=== PATIENT | male | born 1970 | race American Indian/Alaskan Native ===

== ENCOUNTER 2018-10-23 18:53 | Observation (INO) | payer OTHER ==
--- NOTE | 2018-10-23 19:49 | Emergency Department Report ---
Blank Doc - Documentation Documentation: 48 male presents cc of chest pain labs ordered ACC eval
[2018-10-23] MEDS ORDERED: NITROSTAT SL PRN (21:02)
[2018-10-23] MEDS ORDERED: CARAFATE PO ONE (21:02)
[2018-10-23] MEDS ORDERED: ALUM-MAG HYDROX-SIMETH 200-200-20MG/5ML PO ONE (21:02)
[2018-10-23] MEDS ORDERED: PEPCID PO ONE (21:02)
--- NOTE | 2018-10-23 21:02 | Emergency Department Report ---
ED Chest Pain HPI - General Chief Complaint: Chest Pain Stated Complaint: CHEST PAIN Time Seen by Provider: 10/23/18 19:48 Source: patient, RN notes reviewed Mode of arrival: Ambulatory Limitations: No Limitations - History of Present Illness Initial Comments: Primary care Dr.: Past medical history obesity, diabetes, hypertension, high cholesterol Family history: Valvular disease in mother, heart disease in father, and brother. Reports bother had cardiac bypass at the age of 44. Patient presents to the emergency room today with a complaint of chest pain. The chest pain is left-sided, central and right-sided. It is present interm ittently for the past 4-5 days. It occasionally radiates to the back. There is no vomiting or diaphoresis. There is positive recent aspirin use. No DVT or pulmonary embolus risk factors. No recent cardiac risk stratification. Also endorses epigastric burning, and a "gas" sensation, resolved right upper quadrant abdominal pressure, and 2 episodes of nonbloody, nonbilious diarrhea. He is chest pain-free at this time. MD Complaint: chest pain -: Gradual, days(s) Onset: during rest Pain Location: substernal, left chest, right chest Pain Radiation: back Severity: moderate Quality: aching, heaviness Consistency: intermittent Improves With: nothing Worsens With: nothing Aspirin use within the Past 7 Days: (1) Yes - Related Data On Oral Contraceptives: No Allergies Allergy/AdvReac Type Severity Reaction Status Date / Time No Known Allergies Allergy Unverified 10/23/18 18:55 Heart Score - HEART Score History: Slightly suspicious EKG: Non-specific Age: 45-65 Risk factors: > 3 risk factors or hx of atherosclerotic disease Troponin: < normal limit HEART Score: 4 - Critical Actions Critical Actions: 4-6 pts:12-16.6% risk of adverse cardiac event. Should be admitted ED Review of Systems ROS: Stated complaint: CHEST PAIN Other details as noted in HPI Constitutional: denies: diaphoresis, fever Eyes: denies: vision change ENT: denies: congestion Respiratory: cough, shortness of breath Cardiovascular: chest pain Gastrointestinal: denies: vomiting Genitourinary: denies: dysuria Musculoskeletal: denies: arthralgia, myalgia Skin: denies: lesions Neurological: denies: weakness Psychiatric: anxiety ED Past Medical Hx - Past Medical History Hx Hypertension: Yes Hx Diabetes: (pre-diabetic) Additional medical history: high cholesterol - Surgical History Past Surgical History?: No - Social History Smoking Status: Never Smoker Substance Use Type: None ED Physical Exam - General Limitations: No Limitations General appearance: alert, in no apparent distress, obese - Head Head exam: Present: atraumatic, normocephalic - Eye Eye exam: Present: normal appearance, EOMI. Absent: nystagmus - ENT ENT exam: Present: normal exam, normal orophraynx, mucous membranes moist, normal external ear exam - Neck Neck exam: Present: normal inspection, full ROM. Absent: tenderness, meningismus - Respiratory Respiratory exam: Present: normal lung sounds bilaterally. Absent: respiratory distress - Cardiovascular Cardiovascular Exam: Present: regular rate, normal rhythm, normal heart sounds. Absent: bradycardia, tachycardia, irregular rhythm, systolic murmur, diastolic murmur, rubs, gallop - GI/Abdominal GI/Abdominal exam: Present: soft. Absent: distended, tenderness, guarding, rebound, rigid, pulsatile mass - Rectal Rectal exam: Present: deferred - Extremities Exam Extremities exam: Present: normal inspection, full ROM, other (2+ pulses noted in the bilateral upper, lower extremities. Compartments soft. No long bony tenderness. The pelvis is stable.). Absent: pedal edema, joint swelling, calf tenderness - Back Exam Back exam: Present: normal inspection, full ROM. Absent: tenderness, CVA tenderness (R), CVA tenderness (L), paraspinal tenderness, vertebral tenderness - Neurological Exam Neurological exam: Present: alert, normal gait, other (Extraocular movements intact. Tongue midline. No facial droop. Facial sensation intact to light to uch in the V1, V2, V3 distribution bilaterally. 5 and 5 strength in 4 extremities.. Sensation is intact to light touch in 4 extremities.). Absent: motor sensory deficit - Psychiatric Psychiatric exam: Present: anxious - Skin Skin exam: Present: warm, dry, intact, normal color. Absent: rash ED Course Vital Signs 10/23/18 10/23/18 10/23/18 19:29 20:27 21:00 Temperature 97.9 F Pulse Rate 79 78 84 Respiratory 18 22 17 Rate Blood Pressure 144/80 119/78 O2 Sat by Pulse 97 97 97 Oximetry CRISTINA score - Cristina Score Age > 65: (0) No Aspirin use within the Past 7 Days: (1) Yes 3 or more CAD Risk Factors: (1) Yes 2 or more Angina events in past 24 hrs: (1) Yes Known CAD with more than 50% Stenosis: (0) No Elevated Cardiac Markers: (0) No ST Deviation Greater than 0.5mm: (0) No CRISTINA Score: 3 ED Medical Decision Making - Lab Data Result diagrams: 10/23/18 20:01 10/23/18 20:01 Vital Signs 10/23/18 10/23/18 10/23/18 19:00 19:29 20:27 Temperature 97.9 F Pulse Rate 79 78 Respiratory 17 18 22 Rate Blood Pressure 144/80 O2 Sat by Pulse 97 97 97 Oximetry 10/23/18 21:00 Temperature Pulse Rate 84 Respiratory 17 Rate Blood Pressure 119/78 O2 Sat by Pulse 97 Oximetry Lab Results 10/23/18 10/23/18 10/23/18 Range/Units 20:01 20:01 21:07 WBC 6.7 (4.5-11.0) K/mm3 RBC 5.54 H (3.65-5.03) M/mm3 Hgb 15.0 (11.8-15.2) gm/dl Hct 43.3 (35.5-45.6) % MCV 78 L (84-94) fl MCH 27 L (28-32) pg MCHC 35 H (32-34) % RDW 15.2 (13.2-15.2) % Plt Count 222 (140-440) K/mm3 Lymph % (Auto) 30.3 (13.4-35.0) % Brown % (Auto) 8.2 H (0.0-7.3) % Eos % (Auto) 1.6 (0.0-4.3) % Baso % (Auto) 0.4 (0.0-1.8) % Lymph # 2.0 (1.2-5.4) K/mm3 Brown # 0.5 (0.0-0.8) K/mm3 Eos # 0.1 (0.0-0.4) K/mm3 Baso # 0.0 (0.0-0.1) K/mm3 Seg Neutrophils % 59.5 (40.0-70.0) % Seg Neutrophils # 4.0 (1.8-7.7) K/mm3 Sodium 138 (137-145) mmol/L Potassium 3.6 (3.6-5.0) mmol/L Chloride 99.7 (98-107) mmol/L Carbon Dioxide 27 (22-30) mmol/L Anion Gap 15 mmol/L BUN 12 (9-20) mg/dL Creatinine 0.9 (0.8-1.5) mg/dL Estimated GFR > 60 ml/min BUN/Creatinine Ratio 13 % Glucose 95 (75-100) mg/dL Calcium 8.6 (8.4-10.2) mg/dL Magnesium 2.00 (1.7-2.3) mg/dL Total Bilirubin 0.20 (0.1-1.2) mg/dL Direct Bilirubin < 0.2 (0-0.2) mg/dL Indirect Bilirubin 0.0 mg/dL AST 24 (5-40) units/L ALT 35 (7-56) units/L Alkaline Phosphatase 92 (35-129) units/L Total Creatine Kinase 162 (55-170) units/L Troponin T < 0.010 (0.00-0.029) ng/mL Total Protein 7.3 (6.3-8.2) g/dL Albumin 4.3 (3.9-5) g/dL Albumin/Globulin Ratio 1.4 % Lipase 30 (13-60) units/L - EKG Data -: EKG Interpreted by Me EKG shows normal: sinus rhythm Rate: normal - EKG Data When compared to previous EKG there are: previous EKG unavailable 10/23/18 22:32 EKG shows a normal sinus rhythm, 79 bpm, normal axis, normal intervals, poor R wave progression, not having chest pain currently, this is an abnormal EKG. This EKG is not consistent with ST elevation myocardial infarction. No prior EKG available for comparison. - Radiology Data Radiology results: image reviewed interpreted by me: X-ray of the chest is negative for acute disease - Medical Decision Making Differential diagnosis, including but not limited to: GERD, gastritis, hiatal hernia, acute coronary syndrome, pancreatitis, Assessment and plan: 48-year-old gentleman with atypical chest pain, chest pain free at this time, not tachycardic, not hypoxic, no pulmonary embolus or DVT risk factors, low risk by well's criteria, abnormal EKG, negative troponin, multiple vascular risk factors strong family history for ischemic heart disease. We have recommended admission to the hospital for cardiac risk stratification. Discussed this with the patient, who verbalizes understanding, and who is amenable to cardiac risk stratification hospitalization. The hospital physician, Dr. Ortega, has accepted the patient to the medical service. Critical care attestation.: If time is entered above; I have spent that time in minutes in the direct care of this critically ill patient, excluding procedure time. ED Disposition Clinical Impression: History of chest pain, Abnormal EKG Disposition: OP ADMIT IP TO THIS HOSP Is pt being admited?: Yes Does the pt Need Aspirin: Yes Condition: Good
[2018-10-23 21:06] LABS: Basophils % (Auto) 0.4 % (0.0-1.8); Eosinophils # (Auto) 0.1 K/mm3 (0.0-0.4); Eosinophils % (Auto) 1.6 % (0.0-4.3); Hematocrit 43.3 % (35.5-45.6); Lymphocytes % (Auto) 30.3 % (13.4-35.0); Mean Corpuscular HGB Conc 35 % (32-34); Mean Corpuscular Volume 78 fl (84-94); Monocytes # (Auto) 0.5 K/mm3 (0.0-0.8); Monocytes % (Auto) 8.2 % (0.0-7.3); Platelet Count 222 K/mm3 (140-440); Red Blood Count 5.54 M/mm3 (3.65-5.03); Red Cell Distribution Width 15.2 % (13.2-15.2)
[2018-10-23 21:21] LABS: BUN/Creatinine Ratio 13; Blood Urea Nitrogen 12 mg/dL (9-20); Calcium 8.6 mg/dL (8.4-10.2); Hemolysis Index 0
[2018-10-23 21:36] LABS: Alanine Aminotransferase 35 units/L (7-56); Albumin 4.3 g/dL (3.9-5)
[2018-10-23 21:39] LABS: Bilirubin,Direct < 0.2 mg/dL (0-0.2)
[2018-10-23] MEDS ORDERED: BABY ASPIRIN PO ONE (22:33)
[2018-10-23] MEDS ORDERED: TYLENOL PO PRN (22:55)
[2018-10-23] MEDS ORDERED: MORPHINE IV PRN (22:55)
[2018-10-23] MEDS ORDERED: ZOFRAN IV PRN (22:55)
[2018-10-23] MEDS ORDERED: SODIUM CHLORIDE FLUSH SYRINGE 10 ML IV PRN ×2 (22:55)
[2018-10-23] MEDS ORDERED: APRESOLINE IV PRN (23:00)
--- NOTE | 2018-10-23 23:24 | XRay Report ---
PROCEDURE: XR CHEST ROUTINE 2V TECHNIQUE: PA and lateral chest radiographs were obtained. HISTORY: Chest Pain COMPARISONS: None. FINDINGS: Heart: Normal. Mediastinum/Vessels: Normal. Lungs/Pleural space: Normal. Bony thorax: No acute osseous abnormality. IMPRESSION: Normal examination. This document is electronically signed by Mckay Hayes MD., Oct 23 2018 11:22:47 PM ET
--- NOTE | 2018-10-23 23:30 | History and Physical Report ---
<BHUMI MADRIGAL - Last Filed: 10/23/18 23:58> History of Present Illness Date of examination: 10/23/18 Date of admission: 10/23/18 22:34 Chief complaint: Chest pain History of present illness: Mr. Russell is a pleasant 48-year-old male with history of GERD, hypertension, hyperlipidemia, and prediabetes presents to [facility] ED with complaints of intermittent substernal left sided and right sided chest pain for the past 4-5 days. Patient states that the pain originates substernal with radiation to left upper extremity and right side of chest. He denies nausea, vomiting, diaphoresis. Admits to intermittent diarrhea for 3 days. He used otc Imodium for relief of diarrhea. Patient states that he attempted to get an appointment for today with his PCP Dr. Tipton. Since he was unable to do so he decided to come in to ED for further evaluation.Patient states that he is very concerned about his chest pain given his family history of heart disease. He also admits to consuming unhealthy diet for the past week. He attributes this to working long hours, going through a divorce, not been a cook at home, and eating out. Past History Past Medical History: diabetes (prediabetes), hypertension, hyperlipidemia Past Surgical History: No surgical history Social history: (in the process of divorce ) Family history: other (valvular disease in mother; heart disease in father and brother; brother had CABG at age 44) Medications and Allergies Allergies Allergy/AdvReac Type Severity Reaction Status Date / Time No Known Allergies Allergy Unverified 10/23/18 18:55 Active Meds: Active Medications Acetaminophen (Tylenol) 650 mg PO Q4H PRN PRN Reason: Pain MILD(1-3)/Fever >100.5/CHACON Aspirin (Baby Aspirin) 81 mg PO QDAY GABRIELE Atorvastatin Calcium (Lipitor) 40 mg PO QHS GABRIELE Clopidogrel Bisulfate (Plavix) 75 mg PO QDAY GABRIELE Hydralazine HCl (Apresoline) 10 mg IV Q4H PRN PRN Reason: Blood Pressure Morphine Sulfate (Morphine) 2 mg IV Q4H PRN PRN Reason: Pain, Moderate (4-6) Stop: 10/24/18 23:59 Nitroglycerin (Nitrostat) 0.4 mg SL .Q5MIN PRN PRN Reason: Chest Pain Ondansetron HCl (Zofran) 4 mg IV Q8H PRN PRN Reason: Nausea And Vomiting Sodium Chloride (Sodium Chloride Flush Syringe 10 Ml) 10 ml IV BID GABRIELE Sodium Chloride (Sodium Chloride Flush Syringe 10 Ml) 10 ml IV PRN PRN PRN Reason: LINE FLUSH Sodium Chloride (Sodium Chloride Flush Syringe 10 Ml) 10 ml IV PRN PRN PRN Reason: LINE FLUSH Review of Systems All systems: negative (reviewed and no additional remarkable complaints except as noted below) Cardiovascular: chest pain (intermittent left and right sided chest pain) Gastrointestinal: diarrhea (x 3 days), other (history of GERD and takes omeprazole and otc Zantac) Exam - Physical Exam Narrative exam: Physical exam General appearance: Present: No acute distress, pleasant, obese adult male - EENT Eyes: Present: PERRL, EOM intact ENT: hearing intact, normal dentition - Neck Neck: Present: supple, normal ROM - Respiratory Respiratory effort: Non-labored Respiratory: Clear throughout - Cardiovascular Heart rate: 79 (bpm) Rhythm: Sinus rhythm, regular Heart Sounds: Present: S1 & S2. Absent: rub, click - Extremities Extremities: no ischemia, pulses intact - Peripheral Assessment Peripheral Pulses: within normal limits - Abdominal General gastrointestinal: Obese, soft, non-tender, normal bowel sounds - Integumentary Integumentary: Present: warm, dry - Musculoskeletal Musculoskeletal: Able to move all extremities - Psychiatric Psychiatric: Appropriate for situation, cooperative - Constitutional Vitals: Temp Pulse Resp BP Pulse Ox 97.9 F 84 17 119/78 97 10/23/18 19:29 10/23/18 21:00 10/23/18 21:00 10/23/18 21:00 10/23/18 21:00 Results - Labs CBC & Chem 7: 10/23/18 20:01 10/23/18 20:01 Labs: Laboratory Last Values WBC 6.7 K/mm3 (4.5-11.0) 10/23/18 20:01 RBC 5.54 M/mm3 (3.65-5.03) H 10/23/18 20:01 Hgb 15.0 gm/dl (11.8-15.2) 10/23/18 20:01 Hct 43.3 % (35.5-45.6) 10/23/18 20:01 MCV 78 fl (84-94) L 10/23/18 20:01 MCH 27 pg (28-32) L 10/23/18 20:01 MCHC 35 % (32-34) H 10/23/18 20:01 RDW 15.2 % (13.2-15.2) 10/23/18 20:01 Plt Count 222 K/mm3 (140-440) 10/23/18 20:01 Lymph % (Auto) 30.3 % (13.4-35.0) 10/23/18 20:01 Vance % (Auto) 8.2 % (0.0-7.3) H 10/23/18 20:01 Eos % (Auto) 1.6 % (0.0-4.3) 10/23/18 20:01 Baso % (Auto) 0.4 % (0.0-1.8) 10/23/18 20:01 Lymph # 2.0 K/mm3 (1.2-5.4) 10/23/18 20:01 Vance # 0.5 K/mm3 (0.0-0.8) 10/23/18 20:01 Eos # 0.1 K/mm3 (0.0-0.4) 10/23/18 20:01 Baso # 0.0 K/mm3 (0.0-0.1) 10/23/18 20:01 Seg Neutrophils % 59.5 % (40.0-70.0) 10/23/18 20:01 Seg Neutrophils # 4.0 K/mm3 (1.8-7.7) 10/23/18 20:01 Sodium 138 mmol/L (137-145) 10/23/18 20:01 Potassium 3.6 mmol/L (3.6-5.0) 10/23/18 20:01 Chloride 99.7 mmol/L (98-107) 10/23/18 20:01 Carbon Dioxide 27 mmol/L (22-30) 10/23/18 20:01 15 mmol/L 10/23/18 20:01 BUN 12 mg/dL (9-20) 10/23/18 20:01 0.9 mg/dL (0.8-1.5) 10/23/18 20:01 Estimated GFR > 60 ml/min 10/23/18 20:01 13 % 10/23/18 20:01 Glucose 95 mg/dL (75-100) 10/23/18 20:01 Calcium 8.6 mg/dL (8.4-10.2) 10/23/18 20:01 Magnesium 2.00 mg/dL (1.7-2.3) 10/23/18 21:07 0.20 mg/dL (0.1-1.2) 10/23/18 21:07 < 0.2 mg/dL (0-0.2) 10/23/18 21:07 0.0 mg/dL 10/23/18 21:07 AST 24 units/L (5-40) 10/23/18 21:07 ALT 35 units/L (7-56) 10/23/18 21:07 92 units/L (35-129) 10/23/18 21:07 162 units/L (55-170) 10/23/18 21:07 < 0.010 ng/mL (0.00-0.029) 10/23/18 20:01 7.3 g/dL (6.3-8.2) 10/23/18 21:07 4.3 g/dL (3.9-5) 10/23/18 21:07 1.4 % 10/23/18 21:07 30 units/L (13-60) 10/23/18 21:07 Short CBC 10/23/18 Range/Units 20:01 WBC 6.7 (4.5-11.0) K/mm3 Hgb 15.0 (11.8-15.2) gm/dl Hct 43.3 (35.5-45.6) % Plt Count 222 (140-440) K/mm3 BMP 10/23/18 20:01 Sodium 138 Potassium 3.6 Chloride 99.7 Carbon Dioxide 27 BUN 12 Creatinine 0.9 Glucose 95 Calcium 8.6 Cardiac Enzymes 10/23/18 10/23/18 Range/Units 20:01 21:07 Total Creatine Kinase 162 (55-170) units/L Troponin T < 0.010 (0.00-0.029) ng/mL Liver Function 10/23/18 Range/Units 21:07 Total Bilirubin 0.20 (0.1-1.2) mg/dL Direct Bilirubin < 0.2 (0-0.2) mg/dL AST 24 (5-40) units/L ALT 35 (7-56) units/L Alkaline Phosphatase 92 (35-129) units/L Albumin 4.3 (3.9-5) g/dL - Imaging and Cardiology EKG: image reviewed (sinus rhythm 79 bpm unrevealing for acute ischemic abnormalities) Chest x-ray: report reviewed (no acute cardiopulmonary abnormalities), image r eviewed Assessment and Plan Assessment and plan: Mr. Russell is a pleasant 48-year-old male with history of GERD, hypertension, hyperlipidemia, and prediabetes presents to [facility] ED with complaints of intermittent substernal left sided and right sided chest pain for the past 4-5 days. Troponin negative x1. EKG unrevealing for acute ischemic changes. CXR u nremarkable. Given patient's multiple vascular risk factors and family history of heart disease, he will be admitted as OBS to telemetry unit with plans for Lexiscan in the morning. Cardiology has been consulted. ACS Issue chest pain Hypertension Hyperlipidemia GERD Prediabetes Severe Obesity Plan: Continue supportive care Continues telemetry monitored Pain management Nothing by mouth at midnight Repeat troponin pending Monitor BP IV hydralazine when necessary Lipitor 40 mg nightly Aspirin and Plavix HgbA1c pending Start Protonix We'll likely benefit from outpatient weight management program Lexiscan pending in am Cardiology consult pending Dietitian consult pending DVT PPX SCD's Home medication reconciliation pending Advance Directives: No VTE prophylaxis?: Mechanical Plan of care discussed with patient/family: Yes <LIZBETH MCCLELLAND - Last Filed: 10/24/18 02:45> History of Present Illness Date of admission: 10/23/18 22:34 Medications and Allergies Active Meds: Active Medications Acetaminophen (Tylenol) 650 mg PO Q4H PRN PRN Reason: Pain MILD(1-3)/Fever >100.5/CHACON Aspirin (Baby Aspirin) 81 mg PO QDAY GABRIELE Atorvastatin Calcium (Lipitor) 40 mg PO QHS GABRIELE Clopidogrel Bisulfate (Plavix) 75 mg PO QDAY GABRIELE Hydralazine HCl (Apresoline) 10 mg IV Q4H PRN PRN Reason: Blood Pressure Morphine Sulfate (Morphine) 2 mg IV Q4H PRN PRN Reason: Pain, Moderate (4-6) Stop: 10/24/18 23:59 Nitroglycerin (Nitrostat) 0.4 mg SL .Q5MIN PRN PRN Reason: Chest Pain Ondansetron HCl (Zofran) 4 mg IV Q8H PRN PRN Reason: Nausea And Vomiting Pantoprazole Sodium (Protonix) 40 mg PO QDAY GABRIELE Sodium Chloride (Sodium Chloride Flush Syringe 10 Ml) 10 ml IV BID GABRIELE Sodium Chloride (Sodium Chloride Flush Syringe 10 Ml) 10 ml IV PRN PRN PRN Reason: LINE FLUSH Sodium Chloride (Sodium Chloride Flush Syringe 10 Ml) 10 ml IV PRN PRN PRN Reason: LINE FLUSH Exam - Constitutional Vitals: Temp Pulse Resp BP Pulse Ox 97.6 F 68 17 136/88 95 10/24/18 01:09 10/24/18 01:09 10/24/18 01:09 10/24/18 01:09 10/24/18 01:09 Results - Labs CBC & Chem 7: 10/23/18 20:01 10/23/18 20:01 Labs: Laboratory Last Values WBC 6.7 K/mm3 (4.5-11.0) 10/23/18 20:01 RBC 5.54 M/mm3 (3.65-5.03) H 10/23/18 20:01 Hgb 15.0 gm/dl (11.8-15.2) 10/23/18 20:01 Hct 43.3 % (35.5-45.6) 10/23/18 20:01 MCV 78 fl (84-94) L 10/23/18 20:01 MCH 27 pg (28-32) L 10/23/18 20:01 MCHC 35 % (32-34) H 10/23/18 20:01 RDW 15.2 % (13.2-15.2) 10/23/18 20:01 Plt Count 222 K/mm3 (140-440) 10/23/18 20:01 Lymph % (Auto) 30.3 % (13.4-35.0) 10/23/18 20:01 Vance % (Auto) 8.2 % (0.0-7.3) H 10/23/18 20:01 Eos % (Auto) 1.6 % (0.0-4.3) 10/23/18 20:01 Baso % (Auto) 0.4 % (0.0-1.8) 10/23/18 20:01 Lymph # 2.0 K/mm3 (1.2-5.4) 10/23/18 20:01 Vance # 0.5 K/mm3 (0.0-0.8) 10/23/18 20:01 Eos # 0.1 K/mm3 (0.0-0.4) 10/23/18 20:01 Baso # 0.0 K/mm3 (0.0-0.1) 10/23/18 20:01 Seg Neutrophils % 59.5 % (40.0-70.0) 10/23/18 20:01 Seg Neutrophils # 4.0 K/mm3 (1.8-7.7) 10/23/18 20:01 Sodium 138 mmol/L (137-145) 10/23/18 20:01 Potassium 3.6 mmol/L (3.6-5.0) 10/23/18 20:01 Chloride 99.7 mmol/L (98-107) 10/23/18 20:01 Carbon Dioxide 27 mmol/L (22-30) 10/23/18 20:01 15 mmol/L 10/23/18 20:01 BUN 12 mg/dL (9-20) 10/23/18 20:01 0.9 mg/dL (0.8-1.5) 10/23/18 20:01 Estimated GFR > 60 ml/min 10/23/18 20:01 13 % 10/23/18 20:01 Glucose 95 mg/dL (75-100) 10/23/18 20:01 Calcium 8.6 mg/dL (8.4-10.2) 10/23/18 20:01 Magnesium 2.00 mg/dL (1.7-2.3) 10/23/18 21:07 0.20 mg/dL (0.1-1.2) 10/23/18 21:07 < 0.2 mg/dL (0-0.2) 10/23/18 21: 0.0 mg/dL 10/23/18 21:07 AST 24 units/L (5-40) 10/23/18 21:07 ALT 35 units/L (7-56) 10/23/18 21:07 92 units/L (35-129) 10/23/18 21:07 162 units/L (55-170) 10/23/18 21:07 < 0.010 ng/mL (0.00-0.029) 10/24/18 01:19 7.3 g/dL (6.3-8.2) 10/23/18 21:07 4.3 g/dL (3.9-5) 10/23/18 21:07 1.4 % 10/23/18 21:07 30 units/L (13-60) 10/23/18 21:07 Assessment and Plan Assessment and plan: A/P: Chest pain, probably sec to GERD, r/o ACS I personally discussed the patient with the FIRST LEVELER-C, I agree with the above assessment and plan
[2018-10-24 02:57] LABS: Chol/HDL Ratio 4.3 %
[2018-10-24] MEDS ORDERED: BABY ASPIRIN PO SCH (10:00)
[2018-10-24] MEDS ORDERED: PLAVIX PO SCH (10:00)
[2018-10-24] MEDS ORDERED: PROTONIX PO SCH (10:00)
[2018-10-24] MEDS ORDERED: SODIUM CHLORIDE FLUSH SYRINGE 10 ML IV SCH (10:00)
[2018-10-24] MEDS ORDERED: LEXISCAN IV ONE ×2 (10:51)
--- NOTE | 2018-10-24 12:32 | Event Note ---
Date: 10/24/18 Atypical chest pain ECG unchanged when compared to 2011 Negative troponin Normal CXR Normal stress MPI with no ischemic ECG changes and no ischemia, LVEF 56% Systemic Hypertension Hyperlipidemia Pre-diabetes Recommendation: No further cardiac work-up is needed for atypical chest pain Patient may go home and follow-up as outpatient
[2018-10-24 13:11] VITALS: BP 125/73
--- NOTE | 2018-10-24 13:45 | Discharge Summary ---
Providers - Providers Date of Admission: 10/23/18 22:34 Date of discharge: 10/24/18 Attending physician: EBONIE GUILLORY 10/23/18 Consult to Cardiac Rehabilitation [CONS] Routine Reason For Exam: Phase I 10/23/18 22:56 Consult to Cardiology [CONS] Routine Consulting Provider: ESTRELLA JOHANSEN Reason For Exam: Acute CP Primary care physician: [employer] Hospitalization Condition: Good Hospital course: Patient is a 48 yo man with a history of GERD, hypertension, dyslipidemia and borderline DM who presented with chest pains. ACS ruled out Chest pain, atypical, most likely GERD related as he recently switched from Omeprazole to Zantac Hypertension Hyperlipidemia GERD Prediabetes melliuts Severe Obesity, bmi 43.9 Disposition: DC-01 TO HOME OR SELFCARE Time spent for discharge: 35 minutes Core Measure Documentation - Palliative Care Palliative Care/ Comfort Measures: Not Applicable - Core Measures Any of the following diagnoses?: none - VTE Discharge Requirements Deep Vein Thrombosis/Pulmonary Embolism Present on Admission: No Has pt received <5 days of overlap therapy or INR<2.0: No Anticoagulant overlap therapy prescribed at discharge: No Contraindication No Overlap Therapy order at DC: Not Indicated Exam - Physical Exam Narrative exam: Gen: WDWN, NAD, Awake, Alert, Orientated x 3, bmi 43.9 HEENT: NCAT, EOMI, PERRL, OP Clear Neck: supple, no adenopathy, no thyromegaly, no JVD CVS/Heart: RRR, normal S1S2, pulses present bilaterally Chest/Lungs: CTA B, Symmetrical chest expansion, good air entry bilaterally GI/Abdomen: soft, NTND, good bowel sounds, no guarding or rebound /Bladder: no suprapubic tenderness, no CVA or paraspinal tenderness Extermity/Skin: no c/c/e, no obvious rash MSK: FROM x 4 Neuro: CN 2-12 grossly intact, no new focal deficits Psych: calm - Constitutional Vitals: Temp Pulse Resp BP Pulse Ox 97.9 F 78 16 125/73 96 10/24/18 13:09 10/24/18 13:09 10/24/18 13:09 10/24/18 13:09 10/24/18 13:09 Plan Activity: other (no strenous activity until cleared by PCP) Diet: low salt Special Instructions: record daily BP diary, record blood sugar diary Additional Instructions: Hold Aspirin for couple of days Follow up with: ANNY PEMBERTONGRIMES MD IRMA [Referring] - 3-5 Days Prescriptions: Pantoprazole [Protonix TAB] 40 mg PO QDAY #30 tablet
--- NOTE | 2018-10-25 02:14 | Treadmill Report ---
INDICATION FOR THE PROCEDURE: Chest pain. ORDERING PHYSICIAN: Kath Chin MD FINDINGS: There is no scintigraphic evidence of myocardial ischemia. The left ventricle is normal in size and systolic function. The left ventricular ejection fraction is measured at 56%. There is normal wall motion and wall thickening on gated imaging. CONCLUSION: Normal perfusion scan. JOB# [id number]
== END 2018-10-24 17:00 | disposition home or self-care (01) ==
LOC: ED 18:53 → 4A 22:34
PROVIDERS: ADMIT Internal Medicine; ATTEND Internal Medicine
DX: R07.89 Other chest pain (principal); K21.9 Gastro-esophageal reflux disease without esophagitis; I10 Essential (primary) hypertension; E78.5 Hyperlipidemia, unspecified; R73.03 Prediabetes; E66.01 Morbid (severe) obesity due to excess calories; Z79.82 Long term (current) use of aspirin; Z79.899 Other long term (current) drug therapy; Z87.898 Personal history of other specified conditions
CPT/HCPCS: 36415; 71046; 78452; 80048; 80061; 80076; 82550; 83036; 83690; 83735; 84484; 85025; 93005; 93010; 93017; 99284; A9502; G0378; J2785